=== PATIENT | female | born 1995 | race Two or more races ===

== ENCOUNTER → 2018-01-25 | Outpatient (CLI) | payer MEDICAID, OTHER ==
[~2018-01-25] MED LIST: TERBUTALINE 1 MG/ML, 1ML ONE; TERBUTALINE 1 MG/ML, 1ML SQ ONE
[2018-01-25 23:04] VITALS: BP 113/55
[2018-01-25 23:17] LABS: BASOPHILS # (AUTO) 0.04 x10^3/uL (0-0.3); BASOPHILS % (AUTO) 0 % (0-1); EOSINOPHILS # (AUTO) 0.06 x10^3/uL (0-0.8); EOSINOPHILS % (AUTO) 1 % (1-7); LYMPHOCYTES # (AUTO) 2.33 x10^3/uL (1-6.1); LYMPHOCYTES % (AUTO) 23 % (22-44); MD NO; MEAN CORPUSCULAR HEMOGLOBIN 28.9 pg (27.0-34.8); MEAN CORPUSCULAR HGB CONC 33.7 g/dL (32.4-35.8); MEAN PLATELET VOLUME 7.9 fL (7.4-10.4); MONOCYTES # (AUTO) 0.49 x10^3/uL (0-1.4); MONOCYTES % (AUTO) 5 % (2-9); NEUTROPHILS # (AUTO) 7.35 x10^3/uL (1.8-8.0); NEUTROPHILS % (AUTO) 72 % (42-75); PLATELET COUNT 287 x10^3/uL (130-400); RED BLOOD COUNT 3.28 x10^6/uL (3.82-5.3); RED CELL DISTRIBUTION WIDTH 15.3 % (9.6-15.2)
[2018-01-26 00:09] LABS: MICROSCOPIC INDICATED
== END | disposition home or self-care (01) ==
LOC: LDOP 22:31
PROVIDERS: ATTEND Obstetrics & Gynecology
DX: O99.012 Anemia complicating pregnancy, second trimester (principal); V43.52XA Car driver injured in collision with other type car in traffic accident, initial encounter; Z3A.20 20 weeks gestation of pregnancy
CPT/HCPCS: 36415; 59025; 76815; 81001; 85025; 85460; 87086; 99211; G0463

== ENCOUNTER 2018-02-03 06:31 | Outpatient (CLI) | payer OTHER ==
[~2018-02-03] VITALS: Ht 167.6 cm; Wt 82.2 kg
[2018-02-03 06:49] VITALS: BP 122/67
[2018-02-03] MEDS ORDERED: PREN-3 PO (06:53)
[2018-02-03 07:16] LABS: MICROSCOPIC NOT IND
[2018-02-03] MEDS ORDERED: TERBUTALINE 1 MG/ML, 1ML ONE (08:26)
[2018-02-03] MEDS ORDERED: TERBUTALINE 1 MG/ML, 1ML SQ ONE (08:30)
== END 2018-02-03 18:02 | disposition home or self-care (01) ==
LOC: LDOP 06:31
PROVIDERS: ATTEND Obstetrics & Gynecology
DX: O9A.213 Injury, poisoning and certain other consequences of external causes complicating pregnancy, third trimester (principal); V89.2XXA Person injured in unspecified motor-vehicle accident, traffic, initial encounter; Y93.89 Activity, other specified; Y92.89 Other specified places as the place of occurrence of the external cause; Y99.8 Other external cause status; Z3A.29 29 weeks gestation of pregnancy
CPT/HCPCS: 36415; 59025; 81003; 82731; 87086; 96372; 99211; J3105; G0463

== ENCOUNTER 2018-04-04 12:00 | Outpatient (CLI) | payer OTHER ==
[~2018-04-04] VITALS: Ht 167.6 cm; Wt 87.7 kg
[~2018-04-04 12:00] MED LIST changes: +PREN-3 PO; -TERBUTALINE 1 MG/ML, 1ML ONE; -TERBUTALINE 1 MG/ML, 1ML SQ ONE
[2018-04-04] MEDS ORDERED: FERR325T17 PO (12:08)
[2018-04-04 12:12] VITALS: BP 126/68
== END 2018-04-04 13:40 | disposition home or self-care (01) ==
LOC: LDOP 12:00
PROVIDERS: ATTEND Obstetrics & Gynecology
DX: O26.893 Other specified pregnancy related conditions, third trimester (principal); R10.9 Unspecified abdominal pain; Z3A.38 38 weeks gestation of pregnancy
CPT/HCPCS: 59025; 99211; G0463

== ENCOUNTER 2018-04-04 16:11 | Inpatient (IN) | payer OTHER ==
[~2018-04-04] VITALS: Ht 167.6 cm; Wt 87.7 kg
[~2018-04-04 16:11] MED LIST changes: +FERR325T17 PO
[2018-04-04] MEDS ORDERED: D5%-LACTATED RINGERS 1,000 ML IV SCH (16:21)
[2018-04-04] MEDS ORDERED: OXYTOCIN 30U/ 0.9% NaCL 500ML 500 ML IV ONE (16:21)
[2018-04-04] MEDS ORDERED: OXYTOCIN 30U/ 0.9% NaCL 500ML 500 ML ONE (16:26)
[2018-04-04] MEDS ORDERED: MISOPROSTOL 200 MCG TABLET ONE (16:26)
[2018-04-04] MEDS ORDERED: LIDOCAINE/PF 1%, 30ML ONE (16:26)
[2018-04-04] MEDS ORDERED: NEWBORN KIT ONE (16:26)
[2018-04-04] MEDS ORDERED: FENTANYL PF 100 MCG/2ML ONE ×2 (16:28→16:57)
[2018-04-04] MEDS ORDERED: CALCIUM CARBONATE 500 MG TAB.CHEW PO PRN (16:30)
[2018-04-04] MEDS ORDERED: ONDANSETRON 2MG/ML, 2ML IVPush PRN ×2 (16:30→20:00)
[2018-04-04] MEDS ORDERED: FENTANYL PF 100 MCG/2ML IVPush PRN (16:30)
[2018-04-04] MEDS ORDERED: PLEASE ENTER HEIGHT AND WEIGHT MC SCH (16:30)
[2018-04-04] MEDS: LACTATED RINGERS 1,000 ML IV SCH ×2 (16:31→16:54)
[2018-04-04 16:41] LABS: BASOPHILS # (AUTO) 0.08 x10^3/uL (0-0.3); BASOPHILS % (AUTO) 1 % (0-1); EOSINOPHILS # (AUTO) 0.01 x10^3/uL (0-0.8); EOSINOPHILS % (AUTO) 0 % (1-7); LYMPHOCYTES # (AUTO) 1.36 x10^3/uL (1-6.1); LYMPHOCYTES % (AUTO) 9 % (22-44); MD NO; MEAN CORPUSCULAR HEMOGLOBIN 29.1 pg (27.0-34.8); MEAN CORPUSCULAR HGB CONC 33.7 g/dL (32.4-35.8); MEAN CORPUSCULAR VOLUME 86.3 fL (80-100); MEAN PLATELET VOLUME 8.2 fL (7.4-10.4); MONOCYTES # (AUTO) 0.51 x10^3/uL (0-1.4); MONOCYTES % (AUTO) 3 % (2-9); NEUTROPHILS # (AUTO) 13.46 x10^3/uL (1.8-8.0); NEUTROPHILS % (AUTO) 87 % (42-75); PLATELET COUNT 271 x10^3/uL (130-400); RED CELL DISTRIBUTION WIDTH 16.5 % (9.6-15.2)
[2018-04-04 16:44] VITALS: BP 114/55
[2018-04-04] MEDS ORDERED: BUPIVACAINE 0.25% ONE (16:57)
[2018-04-04] MEDS ORDERED: FENTANYL/BUPIV./NS/PF 250 ML EPIDCONT ONE (17:00)
[2018-04-04] MEDS ORDERED: LIDOCAINE/PF 1.5%-EPI 1:200K, 30ML ONE (17:00)
[2018-04-04] MEDS ORDERED: FENTANYL/BUPIV./NS/PF 250 ML EPIDCONT SCH ×2 (17:15→19:55)
[2018-04-04] MEDS ORDERED: FENTANYL PF 500 MCG, BUPIVACAINE/PF 0.5%, 30ML 62.5 ML in SODIUM CHLORIDE 0.9% 177.5 ML EPIDCONT SCH (17:30)
[2018-04-04] MEDS ORDERED: OXYTOCIN 30U/ 0.9% NaCL 500ML 500 ML IV PRN (19:05)
[2018-04-04] MEDS ORDERED: LACTATED RINGERS 1,000 ML IV SCH (19:55)
[2018-04-04] MEDS ORDERED: EPHEDRINE 50 MG/ML, 1ML IVPush PRN (20:00)
[2018-04-04] MEDS ORDERED: LACTATED RINGERS 1,000 ML IVBOLUS PRN (20:00)
[2018-04-04] MEDS ORDERED: OXYcodone/APAP 5/325MG TABLET ONE (22:36)
[2018-04-04] MEDS: OXYTOCIN 30U/ 0.9% NaCL 500ML 500 ML IV SCH (22:36)
[2018-04-04] MEDS ORDERED: IBUPROFEN 600 MG TABLET ONE (22:36)
[2018-04-04] MEDS: IBUPROFEN 600 MG TABLET PO PRN (22:45)
[2018-04-04] MEDS ORDERED: OXYcodone/APAP 5/325MG TABLET PO PRN (23:00)
[2018-04-04] MEDS ORDERED: OXYcodone IR 5MG TABLET PO PRN (23:00)
[2018-04-04] MEDS ORDERED: MISOPROSTOL 200 MCG TABLET PR PRN (23:00)
[2018-04-04] MEDS ORDERED: ACETAMINOPHEN 325 MG TABLET PO PRN (23:00)
[2018-04-04] MEDS ORDERED: ONDANSETRON 2MG/ML, 2ML IV PRN (23:00)
[2018-04-05 00:40] VITALS: BP 106/57
[2018-04-05 05:00] VITALS: BP 112/72
[2018-04-05 06:49] LABS: BASOPHILS # (AUTO) 0.04 x10^3/uL (0-0.3); BASOPHILS % (AUTO) 0 % (0-1); EOSINOPHILS # (AUTO) 0.03 x10^3/uL (0-0.8); EOSINOPHILS % (AUTO) 0 % (1-7); LYMPHOCYTES # (AUTO) 2.28 x10^3/uL (1-6.1); LYMPHOCYTES % (AUTO) 15 % (22-44); MD NO; MEAN CORPUSCULAR HEMOGLOBIN 29.1 pg (27.0-34.8); MEAN CORPUSCULAR HGB CONC 33.2 g/dL (32.4-35.8); MEAN CORPUSCULAR VOLUME 87.5 fL (80-100); MEAN PLATELET VOLUME 8.3 fL (7.4-10.4); MONOCYTES # (AUTO) 0.83 x10^3/uL (0-1.4); MONOCYTES % (AUTO) 5 % (2-9); NEUTROPHILS # (AUTO) 12.34 x10^3/uL (1.8-8.0); NEUTROPHILS % (AUTO) 80 % (42-75); PLATELET COUNT 229 x10^3/uL (130-400); RED BLOOD COUNT 3.27 x10^6/uL (3.82-5.3); RED CELL DISTRIBUTION WIDTH 16.8 % (9.6-15.2)
[2018-04-05 07:37] VITALS: BP 110/68
[2018-04-05] MEDS: OXYTOCIN 30U/ 0.9% NaCL 500ML 500 ML IV SCH ×2 (08:36→18:36)
[2018-04-05] MEDS: PRENATAL VIT/IRON/FA 1 EACH TABLET PO SCH (09:00)
[2018-04-05] MEDS: DOCUSATE 100 MG CAPSULE PO PRN ×2 (09:00→22:29)
[2018-04-05 12:40] VITALS: BP 110/73
[2018-04-05] MEDS: IBUPROFEN 600 MG TABLET PO PRN ×2 (16:20→22:29)
[2018-04-05 16:21] VITALS: BP 116/68
[2018-04-05 20:15] VITALS: BP 118/78
[2018-04-06] MEDS: OXYTOCIN 30U/ 0.9% NaCL 500ML 500 ML IV SCH (04:36)
[2018-04-06] MEDS: IBUPROFEN 600 MG TABLET PO PRN (06:08)
[2018-04-06 07:52] VITALS: BP 110/72
[2018-04-06] MEDS: PRENATAL VIT/IRON/FA 1 EACH TABLET PO SCH (09:00)
[2018-04-06] MEDS ORDERED: IBUP-1222 PO (09:55)
== END 2018-04-06 11:05 | disposition home or self-care (01) | DRG 775 ==
LOC: LDOP 16:11 → LDIP 16:20 → 2NW 04-05 00:28
PROVIDERS: ADMIT Obstetrics & Gynecology; ATTEND Obstetrics & Gynecology
PROC: 10E0XZZ Delivery of Products of Conception, External Approach (ICD-10-PCS; principal; 2018-04-04)
PROC: 0HQ9XZZ Repair Perineum Skin, External Approach (ICD-10-PCS; 2018-04-04)
PROC: 3E0R3BZ Introduction of Anesthetic Agent into Spinal Canal, Percutaneous Approach (ICD-10-PCS; 2018-04-04)
PROC: 00HU33Z Insertion of Infusion Device into Spinal Canal, Percutaneous Approach (ICD-10-PCS; 2018-04-04)
DX: O70.0 First degree perineal laceration during delivery (principal); Z3A.37 37 weeks gestation of pregnancy; Z37.0 Single live birth
CPT/HCPCS: 36415; 85025; 86850; 86900; J3010; J3490; J2590; J7120

== ENCOUNTER 2018-11-17 01:55 | Emergency (ER) | payer OTHER ==
[~2018-11-17] VITALS: Ht 167.6 cm; Wt 78.0 kg
[~2018-11-17 01:55] MED LIST changes: +IBUP-1222 PO
--- NOTE | 2018-11-17 02:36 | NUR ---
PT HERE FOR N/V X 1 WEEK WITH LOWER BACK PAIN AND HEADACHE. VSS. PT IN GOWN. WAITING FOR MD CHAUDHRY. FRIEND AT BEDSIDE
[2018-11-17 02:52] LABS: HCG UR SG 1.039 (1.003-1.030)
[2018-11-17 02:52] LABS: BASOPHILS # (AUTO) 0.01 x10^3/uL (0-0.3); BASOPHILS % (AUTO) 0 % (0-1); EOSINOPHILS # (AUTO) 0.01 x10^3/uL (0-0.8); EOSINOPHILS % (AUTO) 0 % (1-7); LYMPHOCYTES # (AUTO) 1.25 x10^3/uL (1-6.1); LYMPHOCYTES % (AUTO) 10 % (22-44); MD NO; MEAN CORPUSCULAR HGB CONC 33.8 g/dL (32.4-35.8); MEAN CORPUSCULAR VOLUME 85.8 fL (80-100); MEAN PLATELET VOLUME 8.2 fL (7.4-10.4); MONOCYTES # (AUTO) 0.05 x10^3/uL (0-1.4); MONOCYTES % (AUTO) 0 % (2-9); NEUTROPHILS # (AUTO) 10.83 x10^3/uL (1.8-8.0); NEUTROPHILS % (AUTO) 89 % (42-75); PLATELET COUNT 307 x10^3/uL (130-400); RED BLOOD COUNT 4.76 x10^6/uL (3.82-5.3); RED CELL DISTRIBUTION WIDTH 13.2 % (9.6-15.2)
[2018-11-17 02:53] LABS: CULTURE INDICATED? YES; MICROSCOPIC INDICATED
[2018-11-17] MEDS ORDERED: ONDANSETRON 2MG/ML, 2ML IVPush ONE (03:00)
[2018-11-17] MEDS ORDERED: KETOROLAC 30 MG/1 ML IVPush ONE (03:00)
[2018-11-17 03:05] LABS: ALANINE AMINOTRANSFERASE 44 U/L (12-78); ALBUMIN 4.1 g/dL (3.4-5.0); ANION GAP 6 mmol/L (5-15); CALCIUM 9.2 mg/dL (8.5-10.1); CHLORIDE 108 mmol/L (98-107); CREATININE 0.94 mg/dL (0.55-1.02)
[2018-11-17 03:07] LABS: ALKALINE PHOSPHATASE 78 U/L (45-117); BILIRUBIN,TOTAL 0.5 mg/dL (0.2-1.0)
[2018-11-17] MEDS ORDERED: ONDANSETRON 2MG/ML, 2ML ONE (03:42)
[2018-11-17] MEDS ORDERED: KETOROLAC 30 MG/1 ML ONE (03:42)
[2018-11-17 03:48] VITALS: BP 108/63
--- NOTE | 2018-11-17 03:55 | NUR ---
PIV STARTED. PT MEDICATED FOR PAIN AND NAUSEA. VSS. CALL LIGHT IN REACH
--- NOTE | 2018-11-17 04:35 | NUR ---
Patient given discharge instructions and they have confirmed that they understand the instructions. Patient ambulatory with steady gait.
== END 2018-11-17 04:38 | disposition home or self-care (01) ==
LOC: ED 03:13
DX: S39.012A Strain of muscle, fascia and tendon of lower back, initial encounter (principal); R51 Headache; R11.2 Nausea with vomiting, unspecified; X58.XXXA Exposure to other specified factors, initial encounter; Y92.89 Other specified places as the place of occurrence of the external cause; Y99.8 Other external cause status; Y93.89 Activity, other specified
CPT/HCPCS: 36415; 80053; 81001; 81025; 83690; 85025; 87086; 96374; 96375; 99283; J1885; J2405